=== PATIENT | male | born 1970 | race Caucasian/White ===

== ENCOUNTER 2016-09-25 20:45 | Emergency (ER) | payer OTHER ==
[~2016-09-25] VITALS: Ht 182.9 cm; Wt 90.7 kg
--- NOTE | ~2016-09-25 | EKG ---
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
[~2016-09-25 20:45] MED LIST: TUMS PO
[2016-09-25 21:52] LABS: URINE BILIRUBIN 1+ (Negative); URINE BLOOD TRACE (Negative); URINE COLOR YELLOW; URINE GLUCOSE-RANDOM* NEGATIVE (Negative); URINE KETONES TRACE (Negative); URINE NITRITE NEGATIVE (Negative); URINE PROTEIN (DIPSTICK) TRACE (Negative)
[2016-09-25 21:55] LABS: ABSOLUTE NEUTROPHILS 6.6 thou/uL (1.4-8.2); BASOPHILS 0.8 % (0.0-2.0); EOSINOPHILS 1.7 % (0.0-3.0); HEMATOCRIT 39.3 % (42.0-52.0); HEMOGLOBIN 13.5 gm/dL (14.0-18.0); LYMPHOCYTES 12.6 % (24.0-44.0); MCH 32.2 pg (26.0-34.0); MCHC 34.5 g/dL (28.0-37.0); MCV 93.4 fL (80.0-100.0); MONOCYTES 6.9 % (1.0-8.0); PLATELET COUNT 151 thou/uL (150-400); RBC 4.21 mil/uL (4.50-6.00); RDW 15.8 % (10.5-14.5); WBC 8.5 thou/uL (4.0-11.0)
[2016-09-25 21:56] LABS: MANUAL DIFF NO
[2016-09-25 22:02] LABS: CALCIUM 6.4 mg/dL (8.5-10.1); CREATININE 1.2 mg/dL (0.7-1.3); POTASSIUM 3.2 mmol/L (3.5-5.1)
[2016-09-25] MEDS ORDERED: TUMS PO (22:46)
[2016-09-25] MEDS ORDERED: POTASSIUM20 PO (22:46)
[2016-09-25 22:49] VITALS: BP 151/92
[2016-09-25] MEDS ORDERED: LEVOTHYROXIN0.125 M1 PO (22:52)
== END 2016-09-25 22:59 | disposition home or self-care (01) ==
LOC: ER 20:45
PROVIDERS: Physician Assistant
DX: E87.6 Hypokalemia (principal); E83.51 Hypocalcemia; R56.9 Unspecified convulsions; E89.0 Postprocedural hypothyroidism